=== PATIENT | female | born 1995 | race African-American/Black ===

== ENCOUNTER 2017-12-27 12:01 | Emergency (ER) | payer SELFPAY ==
[2017-12-27 12:18] VITALS: BP 141/70
[2017-12-27 12:47] LABS: BASOPHILS % 0.2 (0.0-1.5); EOSINOPHILS % 1.1 % (0.0-6.8); MEAN CORPUSCULAR HEMOGLOBIN 31.6 pg (28.0-34.0); MEAN CORPUSCULAR VOLUME 97.1 fl (80.0-100.0); MONOCYTES % 3.7 % (0.0-11.0); NEUTROPHILS # 12.5 # k/uL (1.4-7.7)
[2017-12-27 13:10] LABS: eGFR (African) > 60; eGFR (Non-African) > 60
--- NOTE | 2017-12-27 13:29 | ED Physician Documentation ---
Abdominal Pain - HISTORIAN Historian: patient, friend - HPI Stated Complaint: Mid-abdominal cramping Chief Complaint: Abdominal Pain Additonal Information: pt here c/o mid abd pain had similar yesterday lasted approx 1 hr then went away. today return of the mid abd pain had normal bm approx 15 min [employer] now pain is lessening - nearly gone. pt relates she is recovering from strept throat. feels that is nearly gone Onset: hours (1) Duration: waxing, waning, other (gradually better since bm) Context: denies: out of country travel, bad food, recent trauma Severity: mild, moderate Quality: pain Associated Symptoms: denies: fever, chills, nausea, vomiting, diarrhea, bloody stools, grossly bloody stools, loss of appetite, chest pain Exacerbated by: movements - ROS CONST: no problems GI/: denies: constipation, black stools, bloody urine, bloody stools, dark urine CVS/RESP: none EYES/ENT: none MS/SKIN/LYMPH: none NEURO/PSYCH: none - SOCIAL HX Smoking History: less than 1 pack/day Alcohol Use: occasionally Drug Use: none - FAMILY HX Family History: no significant history - PAST HX Past History: none Surgeries/Procedures: none Home Medications: Ambulatory Orders Medication Instructions Recorded NK [NK] 12/27/17 Allergies/Adverse Reactions: Allergies Allergy/AdvReac Type Severity Reaction Status Date / Time No Known Allergies Allergy Verified 12/27/17 12:18 - VITAL SIGNS Vital Signs: Vital Signs Temp Pulse Resp BP Pulse Ox 99.4 F 96 H 16 141/70 96 12/27/17 12:02 12/27/17 12:02 12/27/17 12:02 12/27/17 12:02 12/27/17 12:02 - REVIEWED ASSESSMENTS Nursing Assessment Reviewed: Yes Vitals Reviewed: Yes ED Results Lab/Radiology - Lab Results Lab Results: Lab Results 12/27/17 12/27/17 12/27/17 12:40 12:40 12:40 WBC 15.20 K/ul H K/ul (4.00-12.00) RBC 4.89 M/ul M/ul (3.90-5.20) Hgb 15.4 g/dL g/dL (12.0-16.0) Hct 47.5 % H % (34.5-46.5) MCV 97.1 fl fl (80.0-100.0) MCH 31.6 pg pg (28.0-34.0) MCHC 32.5 g/dL g/dL (30.0-36.0) RDW 12.9 % % (11.3-14.3) Plt Count 240 K/mm3 K/mm3 (130-400) Neut % (Auto) 81.8 % H % (39.0-79.0) Lymph % (Auto) 11.9 % L % (16.0-50.0) Jerome % (Auto) 3.7 % % (0.0-11.0) Eos % (Auto) 1.1 % % (0.0-6.8) Baso % (Auto) 0.2 (0.0-1.5) Neut # (Auto) 12.5 # k/uL H # k/uL (1.4-7.7) Lymph # (Auto) 1.8 # k/uL # k/uL (0.6-4.0) Jerome # (Auto) 0.6 # k/uL # k/uL (0.0-0.9) Eos # (Auto) 0.2 # k/uL # k/uL (0.0-0.6) Baso # (Auto) 0.0 # k/uL # k/uL (0.0-0.5) Reactive Lymphs % 1.3 % % (0.0-5.0) Reactive Lymphs # 0.2 # k/uL # k/uL (0.0-0.8) Sodium 141 mmol/L mmol/L (136-145) Potassium 3.5 mmol/L mmol/L (3.5-5.1) Chloride 102 mmol/L mmol/L (98-107) Carbon Dioxide 29 mmol/L mmol/L (22-30) BUN 8 mg/dL mg/dL (7-17) Creatinine 0.80 mg/dL mg/dL (0.52-1.04) Estimated Creat Clear 111 Est GFR ( Amer) > 60 (60 - ) Est GFR (Non-Af Amer) > 60 (60 - ) Glucose 92 mg/dL mg/dL (74-106) Calcium 9.3 mg/dL mg/dL (8.4-10.2) Total Bilirubin 0.2 mg/dL mg/dL (0.2-1.3) AST 16 U/L U/L (15-46) ALT 17 U/L U/L (13-69) Alkaline Phosphatase 80 U/L U/L (38-126) Total Protein 8.1 g/dL g/dL (6.3-8.2) Albumin 4.6 g/dL g/dL (3.5-5.0) Lipase 61 U/L U/L (23-300) - Radiology Radiology Impressions: ac abd=normal minimal feces gas--radiologists reports no path - Orders Orders: ED Orders Category Date Time Status ABD SERIES PA CHEST [RAD] Stat Exams 12/27/17 Ordered CBC/PLATELET/DIFF Routine Lab 12/27/17 12:40 Completed CMP Routine Lab 12/27/17 12:40 Completed LIPASE Stat Lab 12/27/17 12:40 Completed URINALYSIS Routine Lab 12/27/17 Ordered URINE HCG Stat Lab 12/27/17 Uncollected Abdominal Pain Physical Exam - Physical Exam General Appearance: mild distress, moderate distress EENT: eye inspection normal NECK: normal inspection, supple. No: lymphadenopathy RESPIRATORY: chest non-tender, breath sounds normal. No: no resp distress CVS: reg rate & rhythm, heart sounds normal ABDOMEN: soft, tenderness (mid abdomen appears mild =- no guarding or rigidity) . No: abnormal bowel sounds, McBurney's point tenderne, rebound, distended BACK: normal inspection SKIN: warm/dry, normal color. No: cyanosis, diaphoresis, jaundice, mottled EXTREMITIES: non-tender, no evidence of injury, no edema NEURO: oriented X3, motor nml, sensation nml, mood/affect nml Vital Signs: Vital Signs Temp Pulse Resp BP Pulse Ox 99.4 F 96 H 16 141/70 96 12/27/17 12:02 12/27/17 12:02 12/27/17 12:02 12/27/17 12:12/27/17 12:02 Discharge Clincal Impression: un diagnosed abdominal pain Referrals: Primary Doctor,No [Primary Care Provider] - 2 Days Comments: pt elects no ct or other eval today-says now pain is totally gone--will ret if returns-- Condition: Good Disposition: 01 HOME, SELF-CARE Decision to Admit: NO Decision Time: 13:36
--- NOTE | 2017-12-27 22:51 | Diagnostic Imaging Report ---
[facility] [address] [facility].[address] [address] Report Submission Date: Dec 27, 2017 1:08:19 PM CDT Patient Study Name: GEOFF CLOUD Date: Dec 27, 2017 12:37:09 PM CDT Modality Type: DX Gender: F Description: CHEST,ABDOMEN : 89 Institution: [facility] Physician: TIA CH Examination: Obstruction series History: AAS, MID-LOWER ABD PAIN AND CRAMPS SINCE YESTERDAY, NEGATIVE HCG (Hx) Findings: 4 views obtained of the chest and abdomen. No abnormal dilation of the large or small bowel. Air and stool throughout the large bowel. No suspicious calcification projecting over the renal fossa or the lower pelvic region. Osseous structures are appropriate for age. No acute pulmonary process. Impression: No obstruction. No suspicious calcifications by plain film sensitivity. No acute pulmonary process. Electronically signed on Dec 27, 2017 1:08:19 PM CDT by: Mao ALFARO
== END 2017-12-27 13:35 | disposition home or self-care (01) ==
LOC: ED 12:01
DX: R10.9 Unspecified abdominal pain (principal)
CPT/HCPCS: 74022; 80053; 83690; 85025; 99284